=== PATIENT | female | born 1940 | race Caucasian/White ===

== ENCOUNTER 2020-10-17 02:01 | Inpatient (IN) | payer OTHER, MEDICAID ==
[~2020-10-17] VITALS: Ht 160 cm; Wt 113.0 kg
[2020-10-17 06:11] LABS: Hemoglobin 7.2 g/dL (12.2-16.2); Lymphocytes # (auto) 1.4 10 ^3/uL (0.4-5.4)
[2020-10-17 06:14] LABS: Basophils # (auto) 0 10 ^3/uL (0-0.2); Basophils % (auto) 0.7 % (0.0-2.0); Eosinophils # (auto) 0.8 10 ^3/uL (0-0.8); Eosinophils % (auto) 12.4 % (0.0-7.0); Hematocrit 21.6 % (36.0-46.0); Lymphocytes % (auto) 20.3 % (10.0-50.0); Mean Corpuscular Hemoglobin 31.6 pg (28.0-32.0); Mean Corpuscular Hgb Conc. 33.3 g/dL (32.0-36.0); Mean Corpuscular Volume 94.8 fL (80.0-100.0); Monocytes # (auto) 0.5 10 ^3/uL (0-1.3); Neutrophils % (auto) 58.6 % (37.0-80.0); Platelet Count (auto) 174 10^3/uL (140-450); Red Blood Cells 2.28 10^6/uL (4.0-5.20); Red Cell Distribution Width 17.5 % (11.8-14.3); White Blood Cell 6.8 10^3/uL (4.4-10.8)
[2020-10-17 06:29] LABS: BUN/Creatinine Ratio 6.7; Calcium 6.8 mg/dL (8.5-10.1); Potassium 5.1 mmol/L (3.5-5.1)
[2020-10-17] MEDS ORDERED: ONDANSETRON HCL 4 MG/2 ML VIAL IV PRN (07:30)
[2020-10-17] MEDS ORDERED: DEXTROSE (50%) 50ML SYRG IV PRN (07:30)
[2020-10-17] MEDS ORDERED: ACETAMINOPHEN 325 MG TAB PO PRN (07:30)
[2020-10-17] MEDS: SEVELAMER 800 MG TAB PO SCH ×3 (08:00→18:58)
[2020-10-17] MEDS: PANTOPRAZOLE 40 MG TAB PO SCH (10:00)
[2020-10-17] MEDS: NIFEdipine ER 30 MG TAB PO SCH (10:00)
[2020-10-17] MEDS: CARVEDILOL 12.5 MG TAB PO SCH ×2 (10:00→21:34)
[2020-10-17] MEDS: InsuLIN REG 1unit/0.01ml Soln (100units/ml) SC SCH ×3 (11:09→21:41)
[2020-10-17] MEDS: ACCU-CHEK COMFORT CURVE STRIP VI SCH ×3 (11:10→21:41)
[2020-10-17 13:57] LABS: INR 0.99 (0.9-1.15)
[2020-10-17 14:21] VITALS: BP 136/53
[2020-10-17] MEDS ORDERED: CARV12.544 PO (15:19)
[2020-10-17] MEDS ORDERED: GABA100C9 PO ×2 (15:19)
[2020-10-17] MEDS ORDERED: DONE1TAB88 PO (15:19)
[2020-10-17] MEDS ORDERED: GLIP5TAB12 PO (15:19)
[2020-10-17] MEDS ORDERED: ATOR40TA52 PO (15:19)
[2020-10-17] MEDS ORDERED: LOSA-69 PO (15:20)
[2020-10-17] MEDS ORDERED: FURO40TA4 PO (15:20)
[2020-10-17] MEDS ORDERED: NIFE1TAB31 PO (15:20)
[2020-10-17] MEDS ORDERED: NIFE1TAB36 PO (15:20)
[2020-10-17] MEDS ORDERED: SODIUM ZIRCONIUM CYCL 10 GM PAK PO ONE (16:00)
[2020-10-17] MEDS ORDERED: POLYETHYLENE GLYCOL 17 GM PWDR PO ONE (16:45)
[2020-10-17 16:49] VITALS: BP 127/55
[2020-10-17] MEDS: DONEPEZIL HYDROCHLORIDE 5 MG TAB PO SCH (21:34)
[2020-10-17 22:00] VITALS: BP 134/55
[2020-10-18] VITALS (7 sets, daily range): BP systolic 102–149; BP diastolic 53–72
[2020-10-18] MEDS: ACCU-CHEK COMFORT CURVE STRIP VI SCH ×4 (06:03→22:00)
[2020-10-18] MEDS: InsuLIN REG 1unit/0.01ml Soln (100units/ml) SC SCH ×4 (06:03→22:00)
[2020-10-18 06:35] LABS: Basophils # (auto) 0 10 ^3/uL (0-0.2); Basophils % (auto) 0.2 % (0.0-2.0); Eosinophils # (auto) 0.7 10 ^3/uL (0-0.8); Lymphocytes # (auto) 1.4 10 ^3/uL (0.4-5.4)
[2020-10-18 06:37] LABS: Eosinophils % (auto) 10.9 % (0.0-7.0); Lymphocytes % (auto) 20.9 % (10.0-50.0); Mean Corpuscular Hemoglobin 31.4 pg (28.0-32.0); Mean Corpuscular Hgb Conc. 33.2 g/dL (32.0-36.0); Mean Corpuscular Volume 94.4 fL (80.0-100.0); Monocytes # (auto) 0.6 10 ^3/uL (0-1.3); Monocytes % (auto) 8.8 % (0.0-12.0); Neutrophils # (auto) 3.9 10 ^3/uL (1.6-8.6); Neutrophils % (auto) 59.2 % (37.0-80.0); Nucleated Red Blood Cells % 0.1 %; Platelet Count (auto) 190 10^3/uL (140-450); Red Blood Cells 2.12 10^6/uL (4.0-5.20); Red Cell Distribution Width 17.6 % (11.8-14.3); White Blood Cell 6.7 10^3/uL (4.4-10.8)
[2020-10-18 06:53] LABS: Hemoglobin 6.7 g/dL (12.2-16.2)
[2020-10-18] MEDS ORDERED: SODIUM CHL 0.9% 1000 ML BAG XX ONE (07:00)
[2020-10-18 07:01] LABS: Ferritin 1007.1 ng/mL (10-322); Folate (Folic Acid) 15.72 ng/mL (5.38-24)
[2020-10-18 07:10] LABS: % Iron Saturation 35.9 % (15-50)
[2020-10-18 07:11] LABS: BUN/Creatinine Ratio 6.1; Bilirubin, Total 0.4 mg/dL (0.2-1.0); Calcium 7.5 mg/dL (8.5-10.1); Phosphorus 5.2 mg/dL (2.5-4.90); Total Protein 6.5 g/dL (6.4-8.2)
[2020-10-18 07:38] LABS: Potassium 6.3 mmol/L (3.5-5.1)
[2020-10-18] MEDS: SEVELAMER 800 MG TAB PO SCH ×3 (07:45→18:00)
[2020-10-18] MEDS ORDERED: INSULIN LISPRO (HUMAN) 100 UNITS/ML ML SC ONE (08:15)
[2020-10-18] MEDS ORDERED: DEXTROSE (50%) 50ML SYRG IV ONE ×2 (08:15)
[2020-10-18] MEDS ORDERED: ceFAZolin 1GM VL ONE (08:25)
[2020-10-18] MEDS ORDERED: GELATIN 1 SPONGE SIZE 100 TOP ONE (08:26)
[2020-10-18] MEDS ORDERED: LIDOCAINE 1% HCL (LOCAL ANESTH.) INJ 20ML MDV ONE (08:26)
[2020-10-18] MEDS: PANTOPRAZOLE 40 MG TAB PO SCH (10:00)
[2020-10-18] MEDS: NIFEdipine ER 30 MG TAB PO SCH (10:02)
[2020-10-18] MEDS: CARVEDILOL 12.5 MG TAB PO SCH ×2 (10:02→22:00)
[2020-10-18] MEDS: ALBUTEROL SULF 2.5 MG/0.5ML(0.5%) NEB SOLN NEB SCH ×2 (10:30→11:00)
[2020-10-18 15:27] LABS: Hemoglobin 8.2 g/dL (12.2-16.2)
[2020-10-18] MEDS ORDERED: LIDOCAINE 2%HCL (LOCAL ANESTH.) INJ 20ML MDV ONE (15:27)
[2020-10-18] MEDS ORDERED: IODIXANOL 320MG/ML 100ML BTL IV ONE (15:28)
[2020-10-18 15:29] LABS: Hematocrit 24.5 % (36.0-46.0)
[2020-10-18] MEDS ORDERED: HEPARIN SODIUM (PORCINE) 5000 UNITS/ML 1ML VIAL ONE ×2 (15:42→18:45)
[2020-10-18] MEDS ORDERED: fentaNYL CITRATE 100 MCG/2 ML VL ONE (15:42)
[2020-10-18] MEDS ORDERED: MIDAZOLAM HCL 1MG/1ML-2 ML VIAL ONE (15:42)
[2020-10-18] MEDS ORDERED: CATHFLO ACTIVASE (ALTEPLASE) 2 MG VIAL IV ONE ×3 (16:35→18:34)
[2020-10-18] MEDS ORDERED: HEPARIN 1,000 UNITS/ml 1ML VIAL ONE (17:30)
[2020-10-18] MEDS ORDERED: EPOETIN ALFA 10,000 UNIT/1 ML VIAL SC ONE (21:00)
[2020-10-18] MEDS: DONEPEZIL HYDROCHLORIDE 5 MG TAB PO SCH (22:00)
[2020-10-19] VITALS (7 sets, daily range): BP systolic 108–150; BP diastolic 52–63
[2020-10-19] MEDS: ACCU-CHEK COMFORT CURVE STRIP VI SCH ×4 (06:21→21:50)
[2020-10-19] MEDS: InsuLIN REG 1unit/0.01ml Soln (100units/ml) SC SCH ×4 (06:22→22:00)
[2020-10-19] MEDS: SEVELAMER 800 MG TAB PO SCH ×3 (08:00→17:51)
[2020-10-19] MEDS ORDERED: SODIUM ZIRCONIUM CYCL 10 GM PAK PO ONE (09:30)
[2020-10-19] MEDS: ALBUTEROL SULF 2.5 MG/0.5ML(0.5%) NEB SOLN NEB SCH (10:22)
[2020-10-19] MEDS: NIFEdipine ER 30 MG TAB PO SCH (10:27)
[2020-10-19] MEDS: CARVEDILOL 12.5 MG TAB PO SCH ×2 (10:27→22:49)
[2020-10-19] MEDS: PANTOPRAZOLE 40 MG TAB PO SCH (10:27)
[2020-10-19 10:49] LABS: Basophils # (auto) 0 10 ^3/uL (0-0.2); Lymphocytes # (auto) 0.7 10 ^3/uL (0.4-5.4); Monocytes # (auto) 0.7 10 ^3/uL (0-1.3); Neutrophils # (auto) 5.8 10 ^3/uL (1.6-8.6); White Blood Cell 7.9 10^3/uL (4.4-10.8)
[2020-10-19 10:51] LABS: Basophils % (auto) 0.3 % (0.0-2.0); Eosinophils # (auto) 0.6 10 ^3/uL (0-0.8); Eosinophils % (auto) 8.1 % (0.0-7.0); Hematocrit 21.3 % (36.0-46.0); Mean Corpuscular Hemoglobin 31.1 pg (28.0-32.0); Mean Corpuscular Hgb Conc. 32.8 g/dL (32.0-36.0); Mean Corpuscular Volume 94.9 fL (80.0-100.0); Monocytes % (auto) 9.3 % (0.0-12.0); Neutrophils % (auto) 73.3 % (37.0-80.0); Platelet Count (auto) 171 10^3/uL (140-450); Red Blood Cells 2.25 10^6/uL (4.0-5.20); Red Cell Distribution Width 17.2 % (11.8-14.3)
[2020-10-19] MEDS ORDERED: HYDROmorphone HCL 2 MG/ML VL ONE (10:58)
[2020-10-19] MEDS ORDERED: HEPARIN SODIUM (PORCINE) 5000 UNITS/ML 1ML VIAL ONE ×2 (11:01→22:32)
[2020-10-19 11:03] LABS: INR 1.01 (0.9-1.15); Partial Thromboplastin Time 23.6 sec (23.0-31.2)
[2020-10-19 11:13] LABS: Calcium 7.5 mg/dL (8.5-10.1)
[2020-10-19 11:25] LABS: BUN/Creatinine Ratio 6.1
[2020-10-19 11:42] LABS: Potassium 5.9 mmol/L (3.5-5.1)
[2020-10-19] MEDS ORDERED: SODIUM CHL 0.9% 1000 ML BAG XX ONE (22:15)
[2020-10-19] MEDS ORDERED: HEPARIN 1,000 UNITS/ml 1ML VIAL ONE ×2 (22:32→22:36)
[2020-10-19] MEDS: DONEPEZIL HYDROCHLORIDE 5 MG TAB PO SCH (22:49)
[2020-10-20 05:00] VITALS: BP 113/45
[2020-10-20 05:13] LABS: Basophils # (auto) 0 10 ^3/uL (0-0.2); Eosinophils # (auto) 0.6 10 ^3/uL (0-0.8); Monocytes # (auto) 0.4 10 ^3/uL (0-1.3); Platelet Count (auto) 144 10^3/uL (140-450)
[2020-10-20 05:16] LABS: Basophils % (auto) 0.4 % (0.0-2.0); Eosinophils % (auto) 11.4 % (0.0-7.0); Hematocrit 23.8 % (36.0-46.0); Hemoglobin 8.1 g/dL (12.2-16.2); Lymphocytes # (auto) 0.6 10 ^3/uL (0.4-5.4); Lymphocytes % (auto) 10.6 % (10.0-50.0); Mean Corpuscular Hemoglobin 31.2 pg (28.0-32.0); Mean Corpuscular Hgb Conc. 34.1 g/dL (32.0-36.0); Mean Corpuscular Volume 91.4 fL (80.0-100.0); Monocytes % (auto) 7.2 % (0.0-12.0); Neutrophils % (auto) 70.4 % (37.0-80.0); Nucleated Red Blood Cells % 0.1 %; Red Blood Cells 2.61 10^6/uL (4.0-5.20); Red Cell Distribution Width 16.5 % (11.8-14.3); White Blood Cell 5.7 10^3/uL (4.4-10.8)
[2020-10-20 05:33] LABS: Potassium 4.7 mmol/L (3.5-5.1)
[2020-10-20 05:38] LABS: BUN/Creatinine Ratio 4.6
[2020-10-20 05:40] LABS: Bilirubin, Total 0.7 mg/dL (0.2-1.0); Total Protein 6.4 g/dL (6.4-8.2)
[2020-10-20] MEDS: InsuLIN REG 1unit/0.01ml Soln (100units/ml) SC SCH ×4 (06:12→22:41)
[2020-10-20] MEDS: ACCU-CHEK COMFORT CURVE STRIP VI SCH ×4 (06:12→22:41)
[2020-10-20] MEDS: SEVELAMER 800 MG TAB PO SCH ×3 (08:12→17:57)
[2020-10-20 08:24] VITALS: BP 155/71
[2020-10-20] MEDS: PANTOPRAZOLE 40 MG TAB PO SCH (09:57)
[2020-10-20] MEDS: CARVEDILOL 12.5 MG TAB PO SCH ×2 (09:57→22:41)
[2020-10-20] MEDS: NIFEdipine ER 30 MG TAB PO SCH (09:58)
[2020-10-20] MEDS: Glucerna Carbsteady SHAKE Vanilla 8oz PO SCH ×2 (12:37→17:57)
[2020-10-20 13:01] VITALS: BP 153/51
[2020-10-20 16:51] VITALS: BP 129/51
[2020-10-20] MEDS ORDERED: HYDROmorphone HCL 2 MG/ML VL IV ONE (19:00)
[2020-10-20] MEDS ORDERED: EPOETIN ALFA 10,000 UNIT/1 ML VIAL SC ONE (21:00)
[2020-10-20 22:00] VITALS: BP 148/54
[2020-10-20] MEDS: DONEPEZIL HYDROCHLORIDE 5 MG TAB PO SCH (22:40)
[2020-10-21 05:00] VITALS: BP 145/56
[2020-10-21 06:14] LABS: Mean Corpuscular Hemoglobin 31.3 pg (28.0-32.0)
[2020-10-21 06:16] LABS: Hematocrit 22.1 % (36.0-46.0); Hemoglobin 7.6 g/dL (12.2-16.2); Mean Corpuscular Hgb Conc. 34.2 g/dL (32.0-36.0); Mean Corpuscular Volume 91.5 fL (80.0-100.0); Platelet Count (auto) 139 10^3/uL (140-450); Red Blood Cells 2.42 10^6/uL (4.0-5.20)
[2020-10-21 06:24] LABS: Band Neutrophils % (manual) 0; Basophils % (manual) 0 (0.0-2.0); Blast Cells 0; Metamyelocytes % 0; Myelocytes % 0; Promyelocytes % 0; Reactive Lymphocytes 0
[2020-10-21] MEDS: InsuLIN REG 1unit/0.01ml Soln (100units/ml) SC SCH ×4 (06:31→21:05)
[2020-10-21] MEDS: ACCU-CHEK COMFORT CURVE STRIP VI SCH ×4 (06:31→21:06)
[2020-10-21 06:35] LABS: Potassium 4.8 mmol/L (3.5-5.1)
[2020-10-21 06:48] LABS: BUN/Creatinine Ratio 5.6; Calcium 6.8 mg/dL (8.5-10.1)
[2020-10-21] MEDS: SODIUM CHL 0.9% 1000 ML BAG XX ONE ×2 (07:00→17:53)
[2020-10-21 07:42] LABS: Eosinophils % (manual) 12 (0-7); Lymphocytes % (manual) 20 (10.0-50.0); Monocytes % (manual) 11 (0-12)
[2020-10-21 08:00] VITALS: BP 139/55
[2020-10-21] MEDS: Glucerna Carbsteady SHAKE Vanilla 8oz PO SCH ×3 (08:00→17:53)
[2020-10-21 08:43] VITALS: BP 139/55
[2020-10-21] MEDS: SEVELAMER 800 MG TAB PO SCH ×4 (09:48→18:00)
[2020-10-21] MEDS: PANTOPRAZOLE 40 MG TAB PO SCH (09:48)
[2020-10-21] MEDS: NIFEdipine ER 30 MG TAB PO SCH (09:49)
[2020-10-21] MEDS: CARVEDILOL 12.5 MG TAB PO SCH ×2 (09:49→21:46)
[2020-10-21 12:48] VITALS: BP 142/62
[2020-10-21] MEDS ORDERED: MIDAZOLAM HCL 1MG/1ML-2 ML VIAL ONE (13:29)
[2020-10-21] MEDS ORDERED: fentaNYL CITRATE 100 MCG/2 ML VL ONE (13:29)
[2020-10-21] MEDS ORDERED: CATHFLO ACTIVASE (ALTEPLASE) 2 MG VIAL IV ONE (13:48)
[2020-10-21] MEDS ORDERED: LIDOCAINE 2%HCL (LOCAL ANESTH.) INJ 20ML MDV ONE (13:55)
[2020-10-21] MEDS ORDERED: IOHEXOL 350 MG/ML 100ML IJ ONE (14:00)
[2020-10-21] MEDS ORDERED: HEPARIN SODIUM (PORCINE) 5000 UNITS/ML 1ML VIAL ONE (14:08)
[2020-10-21 16:36] VITALS: BP 147/49
[2020-10-21] MEDS: DONEPEZIL HYDROCHLORIDE 5 MG TAB PO SCH (20:41)
[2020-10-21] MEDS ORDERED: EPOETIN ALFA 4,000 UNIT/ML VL SC ONE (21:00)
[2020-10-21 22:31] VITALS: BP 165/75
[2020-10-22 05:12] VITALS: BP 147/49
[2020-10-22 05:29] LABS: Basophils # (auto) 0 10 ^3/uL (0-0.2); Basophils % (auto) 0.4 % (0.0-2.0); Eosinophils # (auto) 0.8 10 ^3/uL (0-0.8); Hematocrit 22.9 % (36.0-46.0); Hemoglobin 7.7 g/dL (12.2-16.2); Lymphocytes # (auto) 0.7 10 ^3/uL (0.4-5.4); Lymphocytes % (auto) 11.9 % (10.0-50.0); Mean Corpuscular Hemoglobin 31.1 pg (28.0-32.0); Mean Corpuscular Hgb Conc. 33.6 g/dL (32.0-36.0); Mean Corpuscular Volume 92.6 fL (80.0-100.0); Monocytes # (auto) 0.7 10 ^3/uL (0-1.3); Monocytes % (auto) 11.3 % (0.0-12.0); Neutrophils # (auto) 4.1 10 ^3/uL (1.6-8.6); Neutrophils % (auto) 64.4 % (37.0-80.0); Nucleated Red Blood Cells % 0.1 %; Platelet Count (auto) 159 10^3/uL (140-450); Red Blood Cells 2.47 10^6/uL (4.0-5.20); Red Cell Distribution Width 15.8 % (11.8-14.3); White Blood Cell 6.3 10^3/uL (4.4-10.8)
[2020-10-22 05:48] LABS: Potassium 5.4 mmol/L (3.5-5.1)
[2020-10-22 05:51] LABS: BUN/Creatinine Ratio 5.9
[2020-10-22] MEDS: InsuLIN REG 1unit/0.01ml Soln (100units/ml) SC SCH ×3 (06:48→17:00)
[2020-10-22] MEDS: ACCU-CHEK COMFORT CURVE STRIP VI SCH ×3 (06:48→17:00)
[2020-10-22 09:00] VITALS: BP 139/80
[2020-10-22] MEDS: CARVEDILOL 12.5 MG TAB PO SCH (10:00)
[2020-10-22] MEDS: NIFEdipine ER 30 MG TAB PO SCH (10:00)
[2020-10-22] MEDS: Glucerna Carbsteady SHAKE Vanilla 8oz PO SCH ×2 (10:23→12:17)
[2020-10-22] MEDS: PANTOPRAZOLE 40 MG TAB PO SCH (10:24)
[2020-10-22] MEDS: SEVELAMER 800 MG TAB PO SCH ×2 (10:24→13:18)
[2020-10-22 12:41] VITALS: BP 168/60
[2020-10-22 15:10] VITALS: BP 136/61
== END 2020-10-22 17:25 | disposition home or self-care (01) | DRG 252 ==
LOC: ER 02:12 → OVERFLOW 02:13 → TELE-CENTR 14:02 → CENTRAL 14:27 → TELE-CENTR 10-19 11:48
PROVIDERS: ADMIT Nurse Practitioner; ATTEND Internal Medicine
PROC: 05HY33Z Insertion of Infusion Device into Upper Vein, Percutaneous Approach (ICD-10-PCS; 2020-10-17)
PROC: 03C80ZZ Extirpation of Matter from Left Brachial Artery, Open Approach (ICD-10-PCS; principal; 2020-10-18)
PROC: 05CF3ZZ Extirpation of Matter from Left Cephalic Vein, Percutaneous Approach (ICD-10-PCS; 2020-10-18)
PROC: 057F3DZ Dilation of Left Cephalic Vein with Intraluminal Device, Percutaneous Approach (ICD-10-PCS; 2020-10-18)
PROC: 03783ZZ Dilation of Left Brachial Artery, Percutaneous Approach (ICD-10-PCS; 2020-10-18)
PROC: 3E03317 Introduction of Other Thrombolytic into Peripheral Vein, Percutaneous Approach (ICD-10-PCS; 2020-10-18)
PROC: B51WYZZ Fluoroscopy of Dialysis Shunt/Fistula using Other Contrast (ICD-10-PCS; 2020-10-18)
PROC: 3E05317 Introduction of Other Thrombolytic into Peripheral Artery, Percutaneous Approach (ICD-10-PCS; 2020-10-18)
PROC: 5A1D70Z Performance of Urinary Filtration, Intermittent, Less than 6 Hours Per Day (ICD-10-PCS; 2020-10-18)
PROC: 5A1D70Z Performance of Urinary Filtration, Intermittent, Less than 6 Hours Per Day (ICD-10-PCS; 2020-10-18)
PROC: 30233N1 Transfusion of Nonautologous Red Blood Cells into Peripheral Vein, Percutaneous Approach (ICD-10-PCS; 2020-10-18)
PROC: 06HY33Z Insertion of Infusion Device into Lower Vein, Percutaneous Approach (ICD-10-PCS; 2020-10-19)
PROC: 057Y3DZ Dilation of Upper Vein with Intraluminal Device, Percutaneous Approach (ICD-10-PCS; 2020-10-21)
PROC: 3E03317 Introduction of Other Thrombolytic into Peripheral Vein, Percutaneous Approach (ICD-10-PCS; 2020-10-21)
PROC: B51W1ZZ Fluoroscopy of Dialysis Shunt/Fistula using Low Osmolar Contrast (ICD-10-PCS; 2020-10-21)
PROC: 05HY33Z Insertion of Infusion Device into Upper Vein, Percutaneous Approach (ICD-10-PCS; 2020-10-21)
PROC: 5A1D70Z Performance of Urinary Filtration, Intermittent, Less than 6 Hours Per Day (ICD-10-PCS; 2020-10-22)
DX: T82.510A Breakdown (mechanical) of surgically created arteriovenous fistula, initial encounter (principal); N18.6 End stage renal disease; I12.0 Hypertensive chronic kidney disease with stage 5 chronic kidney disease or end stage renal disease; Z68.41 Body mass index [BMI] 40.0-44.9, adult; E83.39 Other disorders of phosphorus metabolism; Z20.822 Contact with and (suspected) exposure to COVID-19; D63.1 Anemia in chronic kidney disease; T82.818A Embolism due to vascular prosthetic devices, implants and grafts, initial encounter; F03.90 Unspecified dementia, unspecified severity, without behavioral disturbance, psychotic disturbance, mood disturbance, and anxiety; E66.01 Morbid (severe) obesity due to excess calories; E87.5 Hyperkalemia; E11.22 Type 2 diabetes mellitus with diabetic chronic kidney disease; Y71.2 Prosthetic and other implants, materials and accessory cardiovascular devices associated with adverse incidents; Y83.2 Surgical operation with anastomosis, bypass or graft as the cause of abnormal reaction of the patient, or of later complication, without mention of misadventure at the time of the procedure; Z99.2 Dependence on renal dialysis; Z79.899 Other long term (current) drug therapy
CPT/HCPCS: 36415; 71045; 76942; 80048; 80053; 80061; 82270; 82306; 82607; 82668; 82728; 82746; 82962; 83036; 83540; 83550; 83615; 83735; 83970; 84100; 84132; 84443; 85007; 85014; 85018; 85025; 85027; 85045; 85610; 85730; 86850; 86900; 86901; 86920; 87045; 87081; 87340; 87426; 87427; 87493; 90935; 93005; 94640; 99152; 99153; G0378; J0690; J0885; J1642; J1815; J2001; J2250; J2405; Q9967

== ENCOUNTER 2021-01-23 19:38 | Inpatient (IN) | payer OTHER, MEDICAID ==
[~2021-01-23] VITALS: Ht 157.5 cm; Wt 91.6 kg
[~2021-01-23 19:38] MED LIST: ATOR40TA52 PO; CARV12.544 PO; DONE1TAB88 PO; FURO40TA4 PO; GABA100C9 PO; GLIP5TAB12 PO; LOSA-69 PO; NIFE1TAB31 PO; NIFE1TAB36 PO
[2021-01-23 22:01] LABS: Hematocrit 32.2 % (36.0-46.0); Hemoglobin 10.3 g/dL (12.2-16.2); Mean Corpuscular Hemoglobin 29.5 pg (28.0-32.0); Mean Corpuscular Volume 92.2 fL (80.0-100.0); Platelet Count (auto) 209 10^3/uL (140-450); Red Cell Distribution Width 15.3 % (11.8-14.3); White Blood Cell 6.8 10^3/uL (4.4-10.8)
[2021-01-23 22:03] LABS: Basophils % (manual) 0 (0.0-2.0); Blast Cells 0; Metamyelocytes % 0; Myelocytes % 0; Promyelocytes % 0; Reactive Lymphocytes 0
[2021-01-23 22:18] LABS: Albumin 3.4 g/dL (3.4-5.0); Calcium 7.7 mg/dL (8.5-10.1); Magnesium 3.8 mg/dL (1.6-2.6)
[2021-01-23 22:22] LABS: BUN/Creatinine Ratio 6.5; Bilirubin, Total 0.3 mg/dL (0.2-1.0); Phosphorus 6.9 mg/dL (2.5-4.90); Total Protein 7.4 g/dL (6.4-8.2)
[2021-01-23 22:33] LABS: Potassium 6.7 mmol/L (3.5-5.1)
[2021-01-23 22:42] LABS: INR 1.04 (0.9-1.15)
[2021-01-23] MEDS ORDERED: CALCIUM GLUC 1,000mg/50ml-NS 50 ML IV ONE ×2 (22:45)
[2021-01-23 23:05] LABS: Band Neutrophils % (manual) 1; Eosinophils % (manual) 23 (0-7); Lymphocytes % (manual) 25 (10.0-50.0); Monocytes % (manual) 7 (0-12)
[2021-01-24] MEDS ORDERED: MORPHINE SULF INJ 2 MG/ML SYRINGE 1ML IV PRN (07:45)
[2021-01-24] MEDS ORDERED: NITROGLYCERIN 0.4 MG SL TAB SL PRN (07:45)
[2021-01-24] MEDS ORDERED: DEXTROSE (50%) 50ML SYRG IV PRN ×2 (07:45→18:45)
[2021-01-24 08:41] LABS: Hematocrit 31.5 % (36.0-46.0); Hemoglobin 9.9 g/dL (12.2-16.2); Mean Corpuscular Hemoglobin 29.4 pg (28.0-32.0); Mean Corpuscular Hgb Conc. 31.5 g/dL (32.0-36.0); Mean Corpuscular Volume 93.5 fL (80.0-100.0); Platelet Count (auto) 184 10^3/uL (140-450); Red Blood Cells 3.37 10^6/uL (4.0-5.20); Red Cell Distribution Width 15.1 % (11.8-14.3); White Blood Cell 7.8 10^3/uL (4.4-10.8)
[2021-01-24 08:51] LABS: Band Neutrophils % (manual) 0; Basophils % (manual) 0 (0.0-2.0); Blast Cells 0; Metamyelocytes % 0; Myelocytes % 0; Promyelocytes % 0; Reactive Lymphocytes 0
[2021-01-24 08:57] LABS: Albumin 3.2 g/dL (3.4-5.0); Calcium 7.9 mg/dL (8.5-10.1)
[2021-01-24 09:05] LABS: BUN/Creatinine Ratio 6.5; Bilirubin, Total 0.3 mg/dL (0.2-1.0); Total Protein 6.8 g/dL (6.4-8.2)
[2021-01-24] MEDS: SEVELAMER 800 MG TAB PO SCH ×3 (09:30→17:25)
[2021-01-24] MEDS ORDERED: ALBUTEROL SULF 2.5 MG/0.5ML(0.5%) NEB SOLN NEB ONE ×2 (09:45→12:15)
[2021-01-24] MEDS ORDERED: DEXTROSE (50%) 50ML SYRG IV ONE ×2 (09:45→12:15)
[2021-01-24] MEDS ORDERED: SODIUM BICARBONATE 8.4 % INJ 50ML VIAL IV ONE (09:45)
[2021-01-24] MEDS ORDERED: SODIUM ZIRCONIUM CYCL 10 GM PAK PO ONE ×2 (09:45)
[2021-01-24] MEDS ORDERED: InsuLIN REG 1unit/0.01ml Soln (100units/ml) IV ONE ×2 (09:45→12:15)
[2021-01-24] MEDS ORDERED: DEXTROSE 50% SYRINGE 50 ML IV ONE (09:59)
[2021-01-24] MEDS ORDERED: InsuLIN REG 1unit/0.01ml Soln (100units/ml) ONE (09:59)
[2021-01-24] MEDS ORDERED: SODIUM BICARBONATE 8.4% INJ 50ML SYRINGE ONE ×2 (10:00→10:17)
[2021-01-24 10:49] LABS: Eosinophils % (manual) 28 (0-7); Lymphocytes % (manual) 12 (10.0-50.0); Monocytes % (manual) 8 (0-12)
[2021-01-24] MEDS: B-COMPLEX W/ C & FOLIC ACID(NEPHROVITE TAB) PO SCH (11:25)
[2021-01-24] MEDS: ASPirin 81 mg TAB PO SCH (11:25)
[2021-01-24] MEDS: FAMOTIDINE (10MG/ML) 2ML VL IV SCH (11:26)
[2021-01-24] MEDS: InsuLIN REG 1unit/0.01ml Soln (100units/ml) SC SCH ×3 (11:30→20:30)
[2021-01-24] MEDS: HEPARIN SODIUM (PORCINE) 5000 UNITS/ML 1ML VIAL SC SCH ×2 (11:30→21:53)
[2021-01-24] MEDS: ACCU-CHEK COMFORT CURVE STRIP VI SCH ×3 (11:32→20:31)
[2021-01-24] MEDS ORDERED: ASPI-543 PO (11:36)
[2021-01-24] MEDS ORDERED: SEVE400T PO (11:36)
[2021-01-24 11:41] VITALS: BP 178/61
[2021-01-24] MEDS ORDERED: SODIUM CHL 0.9% 1000 ML BAG XX ONE (12:15)
[2021-01-24] MEDS ORDERED: CALCIUM GLUC 1,000mg/50ml-NS 50 ML IV ONE (12:15)
[2021-01-24 12:50] VITALS: BP 178/61
[2021-01-24] MEDS: ONDANSETRON HCL 4 MG/2 ML VIAL IV PRN (15:50)
[2021-01-24] MEDS: hydrALAZINE HCL 20 MG/ML VL IV PRN (16:35)
[2021-01-24] MEDS: cloNIDine HCL 0.1 MG TAB PO PRN (16:35)
[2021-01-24 17:00] VITALS: BP 205/90
[2021-01-24] MEDS ORDERED: ALBUTEROL SULF 2.5 MG/0.5ML(0.5%) NEB SOLN NEB PRN (17:15)
[2021-01-24 18:27] VITALS: BP 171/65
[2021-01-24 20:00] VITALS: BP 171/65
[2021-01-24 22:00] VITALS: BP 139/82
[2021-01-24] MEDS ORDERED: InsuLIN REG 1unit/0.01ml Soln (100units/ml) SC SCH (22:00)
[2021-01-24] MEDS: ATORVASTATIN 20 MG TAB PO SCH (22:00)
[2021-01-25 05:00] VITALS: BP 156/62
[2021-01-25 05:20] LABS: Hematocrit 30.2 % (36.0-46.0); Hemoglobin 9.9 g/dL (12.2-16.2); Mean Corpuscular Hemoglobin 29.9 pg (28.0-32.0); Mean Corpuscular Volume 90.7 fL (80.0-100.0); Platelet Count (auto) 155 10^3/uL (140-450); Red Blood Cells 3.32 10^6/uL (4.0-5.20); White Blood Cell 6.7 10^3/uL (4.4-10.8)
[2021-01-25 05:24] LABS: Band Neutrophils % (manual) 0; Basophils % (manual) 0 (0.0-2.0); Blast Cells 0; Metamyelocytes % 0; Myelocytes % 0; Promyelocytes % 0; Reactive Lymphocytes 0
[2021-01-25 05:37] LABS: Potassium 5.5 mmol/L (3.5-5.1)
[2021-01-25 05:43] LABS: Albumin 3.1 g/dL (3.4-5.0); BUN/Creatinine Ratio 5.9; Bilirubin, Total 0.4 mg/dL (0.2-1.0); Calcium 7.5 mg/dL (8.5-10.1); Total Protein 6.9 g/dL (6.4-8.2)
[2021-01-25 06:34] LABS: Eosinophils % (manual) 19 (0-7); Lymphocytes % (manual) 12 (10.0-50.0); Monocytes % (manual) 4 (0-12)
[2021-01-25] MEDS: InsuLIN REG 1unit/0.01ml Soln (100units/ml) SC SCH ×4 (06:46→22:29)
[2021-01-25] MEDS: ACCU-CHEK COMFORT CURVE STRIP VI SCH ×4 (06:47→22:14)
[2021-01-25] MEDS: SEVELAMER 800 MG TAB PO SCH ×3 (08:22→18:02)
[2021-01-25 09:00] VITALS: BP 166/67
[2021-01-25] MEDS: B-COMPLEX W/ C & FOLIC ACID(NEPHROVITE TAB) PO SCH (10:15)
[2021-01-25] MEDS: ASPirin 81 mg TAB PO SCH (10:15)
[2021-01-25] MEDS: hydrALAZINE HCL 20 MG/ML VL IV PRN (10:16)
[2021-01-25] MEDS: HEPARIN SODIUM (PORCINE) 5000 UNITS/ML 1ML VIAL SC SCH ×2 (10:17→22:14)
[2021-01-25] MEDS: HYDROcodone-ACET 5/325MG TAB PO PRN (10:22)
[2021-01-25] MEDS ORDERED: SODIUM ZIRCONIUM CYCL 10 GM PAK PO ONE (12:15)
[2021-01-25] MEDS ORDERED: InsuLIN REG 1unit/0.01ml Soln (100units/ml) IV ONE (12:15)
[2021-01-25] MEDS ORDERED: ALBUTEROL SULF 2.5 MG/0.5ML(0.5%) NEB SOLN NEB ONE (12:15)
[2021-01-25 13:00] VITALS: BP 168/65
[2021-01-25] MEDS: MORPHINE SULF INJ 2 MG/ML SYRINGE 1ML IV PRN (14:40)
[2021-01-25] MEDS: ONDANSETRON HCL 4 MG/2 ML VIAL IV PRN (14:40)
[2021-01-25] MEDS: cloNIDine HCL 0.1 MG TAB PO PRN (14:43)
[2021-01-25 17:00] VITALS: BP 146/73
[2021-01-25] MEDS: hydrALAZINE HCL 25 MG TAB PO SCH ×2 (18:03→23:56)
[2021-01-25 22:00] VITALS: BP 152/54
[2021-01-25] MEDS: ATORVASTATIN 20 MG TAB PO SCH (22:15)
[2021-01-25] MEDS: ACETAMINOPHEN 325 MG TAB PO PRN (22:28)
[2021-01-26 05:00] VITALS: BP 155/64
[2021-01-26] MEDS: hydrALAZINE HCL 25 MG TAB PO SCH ×4 (06:27→23:57)
[2021-01-26] MEDS: ACCU-CHEK COMFORT CURVE STRIP VI SCH ×4 (06:27→22:08)
[2021-01-26] MEDS: InsuLIN REG 1unit/0.01ml Soln (100units/ml) SC SCH ×4 (06:27→22:00)
[2021-01-26] MEDS ORDERED: SODIUM CHL 0.9% 1000 ML BAG XX ONE (07:00)
[2021-01-26] MEDS: SEVELAMER 800 MG TAB PO SCH ×3 (08:00→18:02)
[2021-01-26 08:02] LABS: Hematocrit 27.2 % (36.0-46.0); Mean Corpuscular Hemoglobin 30.1 pg (28.0-32.0); Mean Corpuscular Hgb Conc. 33.2 g/dL (32.0-36.0); Mean Corpuscular Volume 90.7 fL (80.0-100.0); Platelet Count (auto) 145 10^3/uL (140-450); Red Cell Distribution Width 15.2 % (11.8-14.3)
[2021-01-26 08:08] LABS: Band Neutrophils % (manual) 0; Basophils % (manual) 0 (0.0-2.0); Blast Cells 0; Metamyelocytes % 0; Myelocytes % 0; Promyelocytes % 0; Reactive Lymphocytes 0
[2021-01-26 08:46] LABS: Eosinophils % (manual) 30 (0-7); Lymphocytes % (manual) 23 (10.0-50.0); Monocytes % (manual) 5 (0-12)
[2021-01-26 08:58] VITALS: BP 155/60
[2021-01-26] MEDS: ASPirin 81 mg TAB PO SCH (09:57)
[2021-01-26] MEDS: B-COMPLEX W/ C & FOLIC ACID(NEPHROVITE TAB) PO SCH (09:57)
[2021-01-26] MEDS: FAMOTIDINE (10MG/ML) 2ML VL IV SCH (09:57)
[2021-01-26] MEDS: HEPARIN SODIUM (PORCINE) 5000 UNITS/ML 1ML VIAL SC SCH (09:58)
[2021-01-26] MEDS: MORPHINE SULF INJ 2 MG/ML SYRINGE 1ML IV PRN (09:58)
[2021-01-26] MEDS: ONDANSETRON HCL 4 MG/2 ML VIAL IV PRN (10:11)
[2021-01-26 13:03] VITALS: BP 150/68
[2021-01-26 17:04] VITALS: BP 145/71
[2021-01-26] MEDS ORDERED: EPOETIN ALFA-EPBX 4,000 UNIT/ML VIAL SC ONE (21:00)
[2021-01-26 21:09] VITALS: BP 162/63
[2021-01-26] MEDS: cloNIDine HCL 0.1 MG TAB PO PRN (22:17)
[2021-01-26] MEDS: ATORVASTATIN 20 MG TAB PO SCH (22:17)
[2021-01-27 04:26] VITALS: BP 129/88
[2021-01-27] MEDS: hydrALAZINE HCL 25 MG TAB PO SCH ×4 (06:01→23:31)
[2021-01-27] MEDS: ACCU-CHEK COMFORT CURVE STRIP VI SCH ×4 (06:22→21:05)
[2021-01-27] MEDS: InsuLIN REG 1unit/0.01ml Soln (100units/ml) SC SCH ×4 (06:22→21:12)
[2021-01-27 07:31] LABS: BUN/Creatinine Ratio 5.6; Calcium 7.6 mg/dL (8.5-10.1); Potassium 5.1 mmol/L (3.5-5.1)
[2021-01-27] MEDS: cloNIDine HCL 0.1 MG TAB PO PRN (08:24)
[2021-01-27] MEDS: SEVELAMER 800 MG TAB PO SCH ×3 (08:24→18:08)
[2021-01-27 09:00] VITALS: BP 183/82
[2021-01-27] MEDS: B-COMPLEX W/ C & FOLIC ACID(NEPHROVITE TAB) PO SCH (10:09)
[2021-01-27] MEDS: ASPirin 81 mg TAB PO SCH (10:09)
[2021-01-27] MEDS: ENOXAPARIN SOD 30 MG/0.3 ML SYRINGE SC SCH (10:09)
[2021-01-27] MEDS: ACETAMINOPHEN 325 MG TAB PO PRN (10:19)
[2021-01-27] MEDS ORDERED: NIFEdipine ER 30 MG TAB PO ONE (12:00)
[2021-01-27 12:59] VITALS: BP 142/58
[2021-01-27 13:00] VITALS: BP 146/57
[2021-01-27 17:00] VITALS: BP 143/65
[2021-01-27 20:00] VITALS: BP 143/58
[2021-01-27] MEDS: ATORVASTATIN 20 MG TAB PO SCH (21:05)
[2021-01-28 05:00] VITALS: BP 136/51
[2021-01-28] MEDS: hydrALAZINE HCL 25 MG TAB PO SCH ×4 (06:00→23:14)
[2021-01-28 06:06] LABS: Hematocrit 27.8 % (36.0-46.0); Hemoglobin 9.2 g/dL (12.2-16.2); Mean Corpuscular Hemoglobin 29.7 pg (28.0-32.0); Platelet Count (auto) 143 10^3/uL (140-450); Red Blood Cells 3.09 10^6/uL (4.0-5.20); Red Cell Distribution Width 14.9 % (11.8-14.3)
[2021-01-28 06:17] LABS: INR 0.99 (0.9-1.15); Partial Thromboplastin Time 26.4 sec (23.0-31.2)
[2021-01-28 06:20] LABS: Basophils % (manual) 0 (0.0-2.0); Blast Cells 0; Metamyelocytes % 0; Myelocytes % 0; Promyelocytes % 0; Reactive Lymphocytes 0
[2021-01-28 06:37] LABS: Potassium 5.5 mmol/L (3.5-5.1)
[2021-01-28 06:41] LABS: Band Neutrophils % (manual) 2; Eosinophils % (manual) 20 (0-7); Lymphocytes % (manual) 27 (10.0-50.0); Monocytes % (manual) 7 (0-12)
[2021-01-28] MEDS: InsuLIN REG 1unit/0.01ml Soln (100units/ml) SC SCH ×4 (06:41→21:13)
[2021-01-28] MEDS: ACCU-CHEK COMFORT CURVE STRIP VI SCH ×4 (06:42→21:14)
[2021-01-28 06:44] LABS: BUN/Creatinine Ratio 5.6; Calcium 7.5 mg/dL (8.5-10.1)
[2021-01-28] MEDS ORDERED: SODIUM CHL 0.9% 1000 ML BAG XX ONE (07:00)
[2021-01-28] MEDS: SEVELAMER 800 MG TAB PO SCH ×3 (08:00→17:35)
[2021-01-28 09:00] VITALS: BP 149/70
[2021-01-28] MEDS: FAMOTIDINE (10MG/ML) 2ML VL IV SCH (09:57)
[2021-01-28] MEDS: ASPirin 81 mg TAB PO SCH (10:00)
[2021-01-28] MEDS: B-COMPLEX W/ C & FOLIC ACID(NEPHROVITE TAB) PO SCH (10:00)
[2021-01-28] MEDS: NIFEdipine ER 30 MG TAB PO SCH (10:00)
[2021-01-28] MEDS: ENOXAPARIN SOD 30 MG/0.3 ML SYRINGE SC SCH (10:00)
[2021-01-28 13:00] VITALS: BP 150/63
[2021-01-28] MEDS ORDERED: CATHFLO ACTIVASE (ALTEPLASE) 2 MG VIAL IV ONE (16:45)
[2021-01-28 17:00] VITALS: BP 168/62
[2021-01-28] MEDS ORDERED: EPOETIN ALFA-EPBX 4,000 UNIT/ML VIAL SC ONE (21:00)
[2021-01-28] MEDS: ATORVASTATIN 20 MG TAB PO SCH (21:13)
[2021-01-28 22:00] VITALS: BP 157/53
[2021-01-29 04:20] LABS: BUN/Creatinine Ratio 5.4; Calcium 7.3 mg/dL (8.5-10.1)
[2021-01-29 05:00] VITALS: BP 148/55
[2021-01-29] MEDS: hydrALAZINE HCL 25 MG TAB PO SCH ×3 (05:29→18:46)
[2021-01-29] MEDS: InsuLIN REG 1unit/0.01ml Soln (100units/ml) SC SCH ×4 (06:08→22:00)
[2021-01-29] MEDS: ACCU-CHEK COMFORT CURVE STRIP VI SCH ×4 (06:09→22:31)
[2021-01-29] MEDS ORDERED: CALCIUM GLUC 1,000mg/50ml-NS 50 ML IV ONE (07:00)
[2021-01-29] MEDS ORDERED: DEXTROSE (50%) 50ML SYRG IV ONE (07:00)
[2021-01-29] MEDS ORDERED: SODIUM BICARBONATE 8.4 % INJ 50ML VIAL IV ONE (07:00)
[2021-01-29] MEDS ORDERED: SODIUM ZIRCONIUM CYCL 10 GM PAK PO ONE ×3 (07:00→23:15)
[2021-01-29] MEDS ORDERED: InsuLIN REG 1unit/0.01ml Soln (100units/ml) IV ONE (07:00)
[2021-01-29] MEDS: ASPirin 81 mg TAB PO SCH (08:42)
[2021-01-29] MEDS: SEVELAMER 800 MG TAB PO SCH ×3 (08:42→18:46)
[2021-01-29] MEDS: B-COMPLEX W/ C & FOLIC ACID(NEPHROVITE TAB) PO SCH (08:42)
[2021-01-29] MEDS: ENOXAPARIN SOD 30 MG/0.3 ML SYRINGE SC SCH (08:43)
[2021-01-29] MEDS: hydrALAZINE HCL 20 MG/ML VL IV PRN ×2 (08:43→22:33)
[2021-01-29] MEDS: NIFEdipine ER 30 MG TAB PO SCH (08:43)
[2021-01-29 09:00] VITALS: BP 164/63
[2021-01-29] MEDS: HYDROcodone-ACET 5/325MG TAB PO PRN (09:23)
[2021-01-29] MEDS: cloNIDine HCL 0.1 MG TAB PO PRN (12:37)
[2021-01-29 13:00] VITALS: BP 163/71
[2021-01-29] MEDS ORDERED: LIDOCAINE 2%HCL (LOCAL ANESTH.) INJ 20ML MDV ONE (13:33)
[2021-01-29] MEDS ORDERED: IODIXANOL 320MG/ML 100ML BTL IV ONE (13:33)
[2021-01-29] MEDS ORDERED: fentaNYL CITRATE 100 MCG/2 ML VL ONE (13:35)
[2021-01-29] MEDS ORDERED: MIDAZOLAM HCL 1MG/1ML-2 ML VIAL ONE (13:35)
[2021-01-29] MEDS ORDERED: ALBUTEROL SULF 2.5 MG/0.5ML(0.5%) NEB SOLN NEB SCH (14:00)
[2021-01-29] MEDS ORDERED: IOHEXOL 350 MG/ML 100ML IJ ONE (14:02)
[2021-01-29] MEDS ORDERED: CATHFLO ACTIVASE (ALTEPLASE) 2 MG VIAL IV ONE (14:10)
[2021-01-29] MEDS ORDERED: HEPARIN SODIUM (PORCINE) 5000 UNITS/ML 1ML VIAL ONE (14:17)
[2021-01-29 20:34] LABS: Albumin 3.4 g/dL (3.4-5.0); Calcium 7.5 mg/dL (8.5-10.1)
[2021-01-29 20:38] LABS: Bilirubin, Total 0.4 mg/dL (0.2-1.0); Total Protein 7.1 g/dL (6.4-8.2)
[2021-01-29 20:52] LABS: Potassium 5.8 mmol/L (3.5-5.1)
[2021-01-29 22:00] VITALS: BP 160/70
[2021-01-29] MEDS: ATORVASTATIN 20 MG TAB PO SCH (22:31)
[2021-01-30] MEDS: hydrALAZINE HCL 25 MG TAB PO SCH ×4 (01:46→17:45)
[2021-01-30 05:00] VITALS: BP 145/57
[2021-01-30] MEDS: InsuLIN REG 1unit/0.01ml Soln (100units/ml) SC SCH ×4 (06:02→21:24)
[2021-01-30 06:22] LABS: Hematocrit 26.9 % (36.0-46.0); Hemoglobin 8.6 g/dL (12.2-16.2); Mean Corpuscular Hemoglobin 28.9 pg (28.0-32.0); Mean Corpuscular Hgb Conc. 32.1 g/dL (32.0-36.0); Platelet Count (auto) 173 10^3/uL (140-450); Red Blood Cells 2.99 10^6/uL (4.0-5.20); Red Cell Distribution Width 14.9 % (11.8-14.3); White Blood Cell 8.7 10^3/uL (4.4-10.8)
[2021-01-30 06:33] LABS: Band Neutrophils % (manual) 0; Basophils % (manual) 0 (0.0-2.0); Blast Cells 0; Metamyelocytes % 0; Myelocytes % 0; Promyelocytes % 0; Reactive Lymphocytes 0
[2021-01-30] MEDS: ACCU-CHEK COMFORT CURVE STRIP VI SCH ×4 (06:47→21:24)
[2021-01-30] MEDS ORDERED: SODIUM CHL 0.9% 1000 ML BAG XX ONE (07:00)
[2021-01-30 07:12] LABS: Eosinophils % (manual) 24 (0-7); Lymphocytes % (manual) 14 (10.0-50.0); Monocytes % (manual) 8 (0-12)
[2021-01-30] MEDS: SEVELAMER 800 MG TAB PO SCH ×3 (08:00→17:45)
[2021-01-30 09:00] VITALS: BP 142/60
[2021-01-30] MEDS: ENOXAPARIN SOD 30 MG/0.3 ML SYRINGE SC SCH (10:00)
[2021-01-30] MEDS: NIFEdipine ER 30 MG TAB PO SCH (10:00)
[2021-01-30] MEDS: FAMOTIDINE (10MG/ML) 2ML VL IV SCH (10:00)
[2021-01-30] MEDS: B-COMPLEX W/ C & FOLIC ACID(NEPHROVITE TAB) PO SCH (10:00)
[2021-01-30] MEDS: ASPirin 81 mg TAB PO SCH (10:00)
[2021-01-30 10:31] VITALS: BP 125/75
[2021-01-30] MEDS ORDERED: SODIUM ZIRCONIUM CYCL 10 GM PAK PO ONE (11:30)
[2021-01-30] MEDS: hydrALAZINE HCL 20 MG/ML VL IV PRN ×2 (12:11→23:08)
[2021-01-30 13:00] VITALS: BP 159/66
[2021-01-30] MEDS: SODIUM ZIRCONIUM CYCL 10 GM PAK PO SCH ×2 (16:24→23:40)
[2021-01-30 19:18] LABS: INR 0.99 (0.9-1.15); Partial Thromboplastin Time 25.4 sec (23.0-31.2)
[2021-01-30] MEDS ORDERED: EPOETIN ALFA-EPBX 4,000 UNIT/ML VIAL SC ONE (21:00)
[2021-01-30] MEDS: ATORVASTATIN 20 MG TAB PO SCH (21:22)
[2021-01-30 22:00] VITALS: BP 152/65
[2021-01-30] MEDS ORDERED: SODIUM ZIRCONIUM CYCL 10 GM PAK PO SCH (22:00)
[2021-01-31] MEDS: hydrALAZINE HCL 25 MG TAB PO SCH ×5 (01:45→23:00)
[2021-01-31] MEDS: ACETAMINOPHEN 325 MG TAB PO PRN ×2 (01:46→09:48)
[2021-01-31 05:00] VITALS: BP 142/61
[2021-01-31 05:13] LABS: Hemoglobin 7.7 g/dL (12.2-16.2); Mean Corpuscular Volume 88.5 fL (80.0-100.0); White Blood Cell 8.5 10^3/uL (4.4-10.8)
[2021-01-31 05:16] LABS: Hematocrit 22.7 % (36.0-46.0); Mean Corpuscular Hgb Conc. 33.9 g/dL (32.0-36.0); Platelet Count (auto) 166 10^3/uL (140-450); Red Blood Cells 2.57 10^6/uL (4.0-5.20); Red Cell Distribution Width 14.8 % (11.8-14.3)
[2021-01-31 05:38] LABS: Band Neutrophils % (manual) 0; Basophils % (manual) 0 (0.0-2.0); Blast Cells 0; Metamyelocytes % 0; Myelocytes % 0; Promyelocytes % 0; Reactive Lymphocytes 0
[2021-01-31] MEDS: ACCU-CHEK COMFORT CURVE STRIP VI SCH ×4 (06:22→22:58)
[2021-01-31] MEDS: InsuLIN REG 1unit/0.01ml Soln (100units/ml) SC SCH ×4 (06:22→22:58)
[2021-01-31] MEDS ORDERED: SODIUM CHL 0.9% 1000 ML BAG XX ONE (07:00)
[2021-01-31 07:01] LABS: Eosinophils % (manual) 16 (0-7); Lymphocytes % (manual) 17 (10.0-50.0); Monocytes % (manual) 9 (0-12)
[2021-01-31] MEDS: SODIUM ZIRCONIUM CYCL 10 GM PAK PO SCH ×2 (07:30→14:00)
[2021-01-31] MEDS: SEVELAMER 800 MG TAB PO SCH ×3 (08:00→18:00)
[2021-01-31 08:40] VITALS: BP 160/102
[2021-01-31] MEDS: B-COMPLEX W/ C & FOLIC ACID(NEPHROVITE TAB) PO SCH (08:45)
[2021-01-31] MEDS: ENOXAPARIN SOD 30 MG/0.3 ML SYRINGE SC SCH (08:45)
[2021-01-31] MEDS: ASPirin 81 mg TAB PO SCH (08:45)
[2021-01-31] MEDS: NIFEdipine ER 30 MG TAB PO SCH (08:45)
[2021-01-31] MEDS: hydrALAZINE HCL 20 MG/ML VL IV PRN (08:46)
[2021-01-31] MEDS ORDERED: cloNIDine HCL 0.1 MG TAB PO ONE (09:30)
[2021-01-31 09:40] VITALS: BP 188/100
[2021-01-31 09:49] LABS: Calcium 7.5 mg/dL (8.5-10.1); Potassium 4.7 mmol/L (3.5-5.1)
[2021-01-31 09:59] LABS: BUN/Creatinine Ratio 5.1
[2021-01-31] MEDS ORDERED: LIDOCAINE 2%HCL (LOCAL ANESTH.) INJ 20ML MDV ONE (10:31)
[2021-01-31 11:05] VITALS: BP 140/55
[2021-01-31] MEDS ORDERED: fentaNYL CITRATE 100 MCG/2 ML VL ONE (11:09)
[2021-01-31] MEDS ORDERED: HEPARIN SODIUM (PORCINE) 5000 UNITS/ML 1ML VIAL ONE (11:09)
[2021-01-31] MEDS ORDERED: CATHFLO ACTIVASE (ALTEPLASE) 2 MG VIAL IV ONE (11:52)
[2021-01-31 16:57] VITALS: BP 111/45
[2021-01-31] MEDS ORDERED: EPOETIN ALFA-EPBX 4,000 UNIT/ML VIAL SC ONE (21:00)
[2021-01-31 22:00] VITALS: BP 185/63
[2021-01-31] MEDS: ATORVASTATIN 20 MG TAB PO SCH (22:58)
[2021-02-01] MEDS: SODIUM ZIRCONIUM CYCL 10 GM PAK PO SCH ×4 (02:24→22:23)
[2021-02-01 05:00] VITALS: BP 126/64
[2021-02-01] MEDS: hydrALAZINE HCL 25 MG TAB PO SCH ×3 (05:30→18:39)
[2021-02-01] MEDS: ACCU-CHEK COMFORT CURVE STRIP VI SCH ×4 (06:14→22:23)
[2021-02-01] MEDS: InsuLIN REG 1unit/0.01ml Soln (100units/ml) SC SCH ×4 (06:15→22:24)
[2021-02-01 07:19] LABS: Basophils # (auto) 0 10 ^3/uL (0-0.2); Basophils % (auto) 0.4 % (0.0-2.0); Eosinophils # (auto) 0.5 10 ^3/uL (0-0.8); Eosinophils % (auto) 6.6 % (0.0-7.0); Hematocrit 23.2 % (36.0-46.0); Hemoglobin 7.8 g/dL (12.2-16.2); Lymphocytes # (auto) 0.6 10 ^3/uL (0.4-5.4); Lymphocytes % (auto) 7.7 % (10.0-50.0); Mean Corpuscular Hemoglobin 29.9 pg (28.0-32.0); Mean Corpuscular Hgb Conc. 33.6 g/dL (32.0-36.0); Mean Corpuscular Volume 88.9 fL (80.0-100.0); Monocytes # (auto) 0.7 10 ^3/uL (0-1.3); Monocytes % (auto) 8.1 % (0.0-12.0); Neutrophils # (auto) 6.2 10 ^3/uL (1.6-8.6); Neutrophils % (auto) 77.2 % (37.0-80.0); Nucleated Red Blood Cells % 0.1 %; Platelet Count (auto) 191 10^3/uL (140-450); Red Blood Cells 2.61 10^6/uL (4.0-5.20); Red Cell Distribution Width 14.9 % (11.8-14.3)
[2021-02-01 07:32] LABS: Calcium 7.8 mg/dL (8.5-10.1); Potassium 4.4 mmol/L (3.5-5.1)
[2021-02-01 07:33] LABS: BUN/Creatinine Ratio 3.6
[2021-02-01 09:00] VITALS: BP 156/58
[2021-02-01] MEDS: ASPirin 81 mg TAB PO SCH (10:34)
[2021-02-01] MEDS: SEVELAMER 800 MG TAB PO SCH ×3 (10:34→18:39)
[2021-02-01] MEDS: B-COMPLEX W/ C & FOLIC ACID(NEPHROVITE TAB) PO SCH (10:35)
[2021-02-01] MEDS: NIFEdipine ER 30 MG TAB PO SCH (10:52)
[2021-02-01] MEDS: ENOXAPARIN SOD 30 MG/0.3 ML SYRINGE SC SCH (10:52)
[2021-02-01] MEDS: FAMOTIDINE (10MG/ML) 2ML VL IV SCH (10:53)
[2021-02-01 13:00] VITALS: BP 156/64
[2021-02-01 16:45] VITALS: BP 163/68
[2021-02-01 22:00] VITALS: BP 151/60
[2021-02-01] MEDS: ATORVASTATIN 20 MG TAB PO SCH (22:22)
[2021-02-02] MEDS: hydrALAZINE HCL 25 MG TAB PO SCH ×5 (00:29→23:50)
[2021-02-02 05:00] VITALS: BP 149/58
[2021-02-02 05:56] LABS: Hemoglobin 7.2 g/dL (12.2-16.2)
[2021-02-02 06:00] LABS: Hematocrit 21.4 % (36.0-46.0); Mean Corpuscular Hemoglobin 30.1 pg (28.0-32.0); Mean Corpuscular Hgb Conc. 33.6 g/dL (32.0-36.0); Mean Corpuscular Volume 89.4 fL (80.0-100.0); Platelet Count (auto) 195 10^3/uL (140-450); Red Blood Cells 2.39 10^6/uL (4.0-5.20); Red Cell Distribution Width 14.9 % (11.8-14.3); White Blood Cell 7.8 10^3/uL (4.4-10.8)
[2021-02-02 06:11] LABS: Potassium 3.5 mmol/L (3.5-5.1)
[2021-02-02 06:14] LABS: Basophils % (manual) 0 (0.0-2.0); Blast Cells 0; Metamyelocytes % 0; Myelocytes % 0; Promyelocytes % 0; Reactive Lymphocytes 0
[2021-02-02 06:15] LABS: BUN/Creatinine Ratio 3.6; Calcium 7.3 mg/dL (8.5-10.1); Magnesium 2.6 mg/dL (1.6-2.6)
[2021-02-02] MEDS: ACCU-CHEK COMFORT CURVE STRIP VI SCH ×4 (06:23→21:57)
[2021-02-02] MEDS: SODIUM ZIRCONIUM CYCL 10 GM PAK PO SCH (06:23)
[2021-02-02] MEDS: InsuLIN REG 1unit/0.01ml Soln (100units/ml) SC SCH ×4 (06:24→21:57)
[2021-02-02 08:00] VITALS: BP 154/65
[2021-02-02 08:23] LABS: Band Neutrophils % (manual) 1; Lymphocytes % (manual) 17 (10.0-50.0); Monocytes % (manual) 9 (0-12)
[2021-02-02 08:24] LABS: Eosinophils % (manual) 13 (0-7)
[2021-02-02] MEDS: SEVELAMER 800 MG TAB PO SCH ×3 (08:25→17:51)
[2021-02-02 09:42] VITALS: BP 154/65
[2021-02-02] MEDS: ASPirin 81 mg TAB PO SCH (09:49)
[2021-02-02] MEDS: NIFEdipine ER 30 MG TAB PO SCH (09:49)
[2021-02-02] MEDS: B-COMPLEX W/ C & FOLIC ACID(NEPHROVITE TAB) PO SCH (09:49)
[2021-02-02] MEDS: ENOXAPARIN SOD 30 MG/0.3 ML SYRINGE SC SCH (09:50)
[2021-02-02 12:00] VITALS: BP 160/63
[2021-02-02 16:00] VITALS: BP 160/50
[2021-02-02] MEDS: ATORVASTATIN 20 MG TAB PO SCH (21:57)
[2021-02-02 22:00] VITALS: BP 161/71
[2021-02-03 01:51] LABS: Urine Amorphous Crystal FEW /hpf (None Seen); Urine Bacteria MANY /hpf (None Seen); Urine Blood TRACE /uL (Negative); Urine Mucus FEW (None Seen); Urine Specific Gravity 1.023 (1.001-1.035); Urine WBC 12 /hpf (0 - 5)
[2021-02-03 05:00] VITALS: BP_SYST 140; BP_SYST 161; BP_DIAS 60; BP_DIAS 65
[2021-02-03 06:12] LABS: Red Cell Distribution Width 14.8 % (11.8-14.3)
[2021-02-03] MEDS: hydrALAZINE HCL 25 MG TAB PO SCH ×3 (06:12→18:39)
[2021-02-03 06:14] LABS: Hematocrit 23.6 % (36.0-46.0); Hemoglobin 7.6 g/dL (12.2-16.2); Mean Corpuscular Hgb Conc. 32.3 g/dL (32.0-36.0); Mean Corpuscular Volume 89.7 fL (80.0-100.0); Platelet Count (auto) 219 10^3/uL (140-450); Red Blood Cells 2.63 10^6/uL (4.0-5.20); White Blood Cell 9.1 10^3/uL (4.4-10.8)
[2021-02-03] MEDS: InsuLIN REG 1unit/0.01ml Soln (100units/ml) SC SCH ×4 (06:15→21:59)
[2021-02-03] MEDS: ACCU-CHEK COMFORT CURVE STRIP VI SCH ×4 (06:15→21:59)
[2021-02-03 06:18] LABS: Basophils % (manual) 0 (0.0-2.0); Blast Cells 0; Metamyelocytes % 0; Myelocytes % 0; Promyelocytes % 0; Reactive Lymphocytes 0
[2021-02-03] MEDS ORDERED: SODIUM CHL 0.9% 1000 ML BAG XX ONE (07:00)
[2021-02-03 07:45] LABS: Band Neutrophils % (manual) 1; Eosinophils % (manual) 14 (0-7); Lymphocytes % (manual) 16 (10.0-50.0); Monocytes % (manual) 9 (0-12)
[2021-02-03 08:00] VITALS: BP 129/56
[2021-02-03] MEDS: SEVELAMER 800 MG TAB PO SCH ×3 (08:00→18:39)
[2021-02-03] MEDS: ASPirin 81 mg TAB PO SCH (10:00)
[2021-02-03] MEDS: ENOXAPARIN SOD 30 MG/0.3 ML SYRINGE SC SCH (10:00)
[2021-02-03] MEDS: B-COMPLEX W/ C & FOLIC ACID(NEPHROVITE TAB) PO SCH (10:38)
[2021-02-03] MEDS: FAMOTIDINE (10MG/ML) 2ML VL IV SCH (10:38)
[2021-02-03] MEDS: NIFEdipine ER 30 MG TAB PO SCH (10:38)
[2021-02-03 12:00] VITALS: BP 144/56
[2021-02-03 16:00] VITALS: BP 148/54
[2021-02-03 20:00] VITALS: BP 136/62
[2021-02-03] MEDS ORDERED: EPOETIN ALFA-EPBX 4,000 UNIT/ML VIAL SC ONE (21:00)
[2021-02-03] MEDS: ATORVASTATIN 20 MG TAB PO SCH (21:59)
[2021-02-03 22:00] VITALS: BP 136/62
[2021-02-04] MEDS: hydrALAZINE HCL 25 MG TAB PO SCH ×5 (00:27→23:44)
[2021-02-04 05:24] VITALS: BP 160/62
[2021-02-04] MEDS: ACCU-CHEK COMFORT CURVE STRIP VI SCH ×4 (06:37→21:57)
[2021-02-04] MEDS: InsuLIN REG 1unit/0.01ml Soln (100units/ml) SC SCH ×4 (06:37→21:58)
[2021-02-04 08:00] VITALS: BP 156/54
[2021-02-04] MEDS: ASPirin 81 mg TAB PO SCH (08:40)
[2021-02-04] MEDS: SEVELAMER 800 MG TAB PO SCH ×3 (08:40→18:47)
[2021-02-04] MEDS: NIFEdipine ER 30 MG TAB PO SCH (08:41)
[2021-02-04] MEDS: ENOXAPARIN SOD 30 MG/0.3 ML SYRINGE SC SCH (08:41)
[2021-02-04] MEDS: B-COMPLEX W/ C & FOLIC ACID(NEPHROVITE TAB) PO SCH (08:41)
[2021-02-04 08:56] LABS: Hemoglobin 8.1 g/dL (12.2-16.2); White Blood Cell 8.8 10^3/uL (4.4-10.8)
[2021-02-04 08:58] LABS: Hematocrit 24.5 % (36.0-46.0); Mean Corpuscular Hemoglobin 29.8 pg (28.0-32.0); Mean Corpuscular Hgb Conc. 33.2 g/dL (32.0-36.0); Mean Corpuscular Volume 89.8 fL (80.0-100.0); Platelet Count (auto) 263 10^3/uL (140-450); Red Blood Cells 2.73 10^6/uL (4.0-5.20); Red Cell Distribution Width 15.1 % (11.8-14.3)
[2021-02-04 09:11] LABS: INR 0.99 (0.9-1.15); Partial Thromboplastin Time 24.1 sec (23.0-31.2)
[2021-02-04 09:24] LABS: Basophils % (manual) 0 (0.0-2.0); Blast Cells 0; Metamyelocytes % 0; Myelocytes % 0; Promyelocytes % 0; Reactive Lymphocytes 0
[2021-02-04] MEDS ORDERED: fentaNYL CITRATE 100 MCG/2 ML VL ONE (10:48)
[2021-02-04] MEDS ORDERED: LIDOCAINE 2%HCL (LOCAL ANESTH.) INJ 20ML MDV ONE (10:49)
[2021-02-04] MEDS ORDERED: MIDAZOLAM HCL 1MG/1ML-2 ML VIAL ONE (10:49)
[2021-02-04 11:03] LABS: Band Neutrophils % (manual) 2; Lymphocytes % (manual) 19 (10.0-50.0); Monocytes % (manual) 5 (0-12)
[2021-02-04 11:04] LABS: Eosinophils % (manual) 26 (0-7)
[2021-02-04] MEDS ORDERED: HEPARIN SODIUM (PORCINE) 5000 UNITS/ML 1ML VIAL ONE (11:04)
[2021-02-04] MEDS ORDERED: hydrALAZINE HCL 20 MG/ML VL ONE (11:53)
[2021-02-04] MEDS ORDERED: IODIXANOL 320MG/ML 100ML BTL IV ONE (11:56)
[2021-02-04] MEDS ORDERED: SODIUM CHL 0.9% 1000 ML BAG XX ONE (15:15)
[2021-02-04 16:00] VITALS: BP 151/59
[2021-02-04] MEDS ORDERED: EPOETIN ALFA-EPBX 10,000 UNIT/1ML VIAL SC ONE (21:00)
[2021-02-04] MEDS: ATORVASTATIN 20 MG TAB PO SCH (21:57)
[2021-02-04 22:00] VITALS: BP 139/62
[2021-02-05 05:00] VITALS: BP 129/66
[2021-02-05] MEDS: hydrALAZINE HCL 25 MG TAB PO SCH ×2 (06:22→12:44)
[2021-02-05] MEDS: InsuLIN REG 1unit/0.01ml Soln (100units/ml) SC SCH ×2 (06:26→12:24)
[2021-02-05] MEDS: ACCU-CHEK COMFORT CURVE STRIP VI SCH ×2 (06:27→11:09)
[2021-02-05] MEDS: SEVELAMER 800 MG TAB PO SCH ×2 (08:17→12:44)
[2021-02-05 09:00] VITALS: BP 164/59
[2021-02-05] MEDS: FAMOTIDINE (10MG/ML) 2ML VL IV SCH (10:00)
[2021-02-05] MEDS: ASPirin 81 mg TAB PO SCH (11:05)
[2021-02-05] MEDS: B-COMPLEX W/ C & FOLIC ACID(NEPHROVITE TAB) PO SCH (11:05)
[2021-02-05] MEDS: NIFEdipine ER 30 MG TAB PO SCH (11:06)
[2021-02-05] MEDS: ENOXAPARIN SOD 30 MG/0.3 ML SYRINGE SC SCH (11:07)
[2021-02-05 12:34] VITALS: BP 160/92
[2021-02-05 13:45] VITALS: BP 160/92
[2021-02-05 15:46] VITALS: BP 160/92
[2021-02-05 17:00] VITALS: BP 161/66
== END 2021-02-05 16:59 | disposition home or self-care (01) | DRG 252 ==
LOC: ER 19:38 → TELE 01-24 07:42 → TELE-WESTW 01-24 10:54 → WEST WING 02-04 12:02
PROVIDERS: ADMIT Nurse Practitioner Family; ATTEND Internal Medicine
PROC: 06HY33Z Insertion of Infusion Device into Lower Vein, Percutaneous Approach (ICD-10-PCS; 2021-01-24)
PROC: B54BZZA Ultrasonography of Right Lower Extremity Veins, Guidance (ICD-10-PCS; 2021-01-24)
PROC: 5A1D70Z Performance of Urinary Filtration, Intermittent, Less than 6 Hours Per Day (ICD-10-PCS; 2021-01-24)
PROC: 5A1D70Z Performance of Urinary Filtration, Intermittent, Less than 6 Hours Per Day (ICD-10-PCS; 2021-01-26)
PROC: 5A1D70Z Performance of Urinary Filtration, Intermittent, Less than 6 Hours Per Day (ICD-10-PCS; 2021-01-28)
PROC: 03C83ZZ Extirpation of Matter from Left Brachial Artery, Percutaneous Approach (ICD-10-PCS; principal; 2021-01-29)
PROC: 05CF3ZZ Extirpation of Matter from Left Cephalic Vein, Percutaneous Approach (ICD-10-PCS; 2021-01-29)
PROC: 03WY3JZ Revision of Synthetic Substitute in Upper Artery, Percutaneous Approach (ICD-10-PCS; 2021-01-29)
PROC: B54CZZA Ultrasonography of Left Lower Extremity Veins, Guidance (ICD-10-PCS; 2021-01-29)
PROC: B51W1ZZ Fluoroscopy of Dialysis Shunt/Fistula using Low Osmolar Contrast (ICD-10-PCS; 2021-01-29)
PROC: 3E03317 Introduction of Other Thrombolytic into Peripheral Vein, Percutaneous Approach (ICD-10-PCS; 2021-01-29)
PROC: 5A1D70Z Performance of Urinary Filtration, Intermittent, Less than 6 Hours Per Day (ICD-10-PCS; 2021-01-30)
PROC: 03WY3JZ Revision of Synthetic Substitute in Upper Artery, Percutaneous Approach (ICD-10-PCS; 2021-01-31)
PROC: 03C83ZZ Extirpation of Matter from Left Brachial Artery, Percutaneous Approach (ICD-10-PCS; 2021-01-31)
PROC: B34JZZZ Ultrasonography of Left Upper Extremity Arteries (ICD-10-PCS; 2021-01-31)
PROC: B51W1ZZ Fluoroscopy of Dialysis Shunt/Fistula using Low Osmolar Contrast (ICD-10-PCS; 2021-01-31)
PROC: 3E03317 Introduction of Other Thrombolytic into Peripheral Vein, Percutaneous Approach (ICD-10-PCS; 2021-01-31)
PROC: 5A1D70Z Performance of Urinary Filtration, Intermittent, Less than 6 Hours Per Day (ICD-10-PCS; 2021-01-31)
PROC: 057Y3ZZ Dilation of Upper Vein, Percutaneous Approach (ICD-10-PCS; 2021-02-04)
PROC: 0JH63XZ Insertion of Tunneled Vascular Access Device into Chest Subcutaneous Tissue and Fascia, Percutaneous Approach (ICD-10-PCS; 2021-02-04)
PROC: 02H633Z Insertion of Infusion Device into Right Atrium, Percutaneous Approach (ICD-10-PCS; 2021-02-04)
PROC: B5181ZA Fluoroscopy of Superior Vena Cava using Low Osmolar Contrast, Guidance (ICD-10-PCS; 2021-02-04)
PROC: B548ZZA Ultrasonography of Superior Vena Cava, Guidance (ICD-10-PCS; 2021-02-04)
PROC: 5A1D70Z Performance of Urinary Filtration, Intermittent, Less than 6 Hours Per Day (ICD-10-PCS; 2021-02-04)
DX: T82.510A Breakdown (mechanical) of surgically created arteriovenous fistula, initial encounter (principal); N18.6 End stage renal disease; I12.0 Hypertensive chronic kidney disease with stage 5 chronic kidney disease or end stage renal disease; E87.70 Fluid overload, unspecified; D63.1 Anemia in chronic kidney disease; T82.818A Embolism due to vascular prosthetic devices, implants and grafts, initial encounter; E11.22 Type 2 diabetes mellitus with diabetic chronic kidney disease; Z20.822 Contact with and (suspected) exposure to COVID-19; Y71.2 Prosthetic and other implants, materials and accessory cardiovascular devices associated with adverse incidents; Y83.2 Surgical operation with anastomosis, bypass or graft as the cause of abnormal reaction of the patient, or of later complication, without mention of misadventure at the time of the procedure; E21.3 Hyperparathyroidism, unspecified; E87.5 Hyperkalemia; Z99.2 Dependence on renal dialysis
CPT/HCPCS: 36415; 71045; 76937; 76942; 80048; 80053; 81001; 82962; 83036; 83735; 83880; 84100; 85007; 85025; 85027; 85610; 85730; 86850; 86900; 86901; 87426; 90935; 93005; 94644; 94645; 96374; 96375; 97110; 97116; 97530; 99152; 99153; C1874; G0378; J1642; J1815; J2250; J2405; J3490; Q9967

== ENCOUNTER → 2021-11-04 | Outpatient (CLI) | payer MEDICARE, MEDICAID ==
[~2021-11-04] MED LIST changes: +ASPI-543 PO; +SEVE400T PO
[2021-11-04 10:37] LABS: Hematocrit 33.1 % (36.0-46.0); Hemoglobin 10.5 g/dL (12.2-16.2); Mean Corpuscular Hemoglobin 30.1 pg (28.0-32.0); Mean Corpuscular Hgb Conc. 31.7 g/dL (32.0-36.0); Red Blood Cells 3.48 10^6/uL (4.0-5.20); Red Cell Distribution Width 17.1 % (11.8-14.3)
[2021-11-04 11:14] LABS: Band Neutrophils % (manual) 0; Basophils % (manual) 0 (0.0-2.0); Blast Cells 0; Myelocytes % 0; Promyelocytes % 0; Reactive Lymphocytes 0
[2021-11-04 11:37] LABS: Potassium 4.4 mmol/L (3.5-5.1)
[2021-11-04 12:02] LABS: Albumin 3.5 g/dL (3.4-5.0); BUN/Creatinine Ratio 4.2; Bilirubin, Total 0.3 mg/dL (0.2-1.0); Calcium 8.9 mg/dL (8.5-10.1); Total Protein 7.5 g/dL (6.4-8.2)
[2021-11-04 13:06] LABS: Eosinophils % (manual) 18 (0-7); Lymphocytes % (manual) 22 (10.0-50.0); Metamyelocytes % 3; Monocytes % (manual) 12 (0-12)
== END | disposition home or self-care (01) ==
LOC: LAB 09:34
PROVIDERS: ATTEND Student in an Organized Health Care Education/Training Program
DX: I12.0 Hypertensive chronic kidney disease with stage 5 chronic kidney disease or end stage renal disease (principal); E11.22 Type 2 diabetes mellitus with diabetic chronic kidney disease; N18.6 End stage renal disease
CPT/HCPCS: 36415; 80053; 80061; 83036; 84443; 85007; 85027